=== PATIENT | male | born 1945 | race Caucasian/White ===

== ENCOUNTER 2024-12-17 16:20 | Emergency (ER) | payer MEDICARE, OTHER ==
[~2024-12-17] VITALS: Ht 185.4 cm; Wt 85.0 kg
[2024-12-17] MEDS: LIDOcaine 1% W/epiNEPHrine 1:100,000 20ml vial SQ ONE (18:01)
--- NOTE | 2024-12-17 19:02 | Physician Documentation ---
History of Present Illness ~ Chief Complaint: Laceration Stated Complaint: HEAD LAC Time Seen by MD: 16:42 Primary Medical Doctor: JACQUE JAMA Patient is seen today with complaints of laceration on his scalp in the temporal region slightly on the left side. Patient states he accidentally hit his head on an overhanging object. Patient denies any loss of consciousness or sig nificant headache or changes in vision or hearing and denies any chest pain or shortness of breath or abdominal pain or nausea, vomiting, diarrhea. He has no other concern or complaint at this time. Tetanus Within 5 Years: No Medication Reconciliation Allergies: Coded Allergies: Penicillins (Verified Allergy, Unknown, 12/17/24) Past Medical History Past Medical History: Hypertension, COPD Past Surgical History: no surgical history Drug Use: none Lives with: Spouse Lives In: Home Review of Systems Constitutional: Denies: chills, fever, weakness Eyes: Denies: pain, blurred vision ENT: Denies: ear pain, nose pain, throat pain, mouth pain Respiratory: Denies: cough, shortness of breath Cardiovascular: Denies: chest pain, palpitations Gastrointestinal: Denies: abdominal pain, nausea, vomiting Genitourinary: Denies: burning, dysuria Male Genitalia: Denies: penile discharge, testicular pain Neurological: Denies: headache, dizziness Musculoskeletal: Denies: pain, swelling Integumentary: Denies: rash, lesions Allergic/Immunologic: Denies: hives, itching Hematologic/Lymphatic: Denies: no symptoms reported Psychiatric: Denies: depression, anxiety Physical Exam Vital Signs: Temperature: 98.9, Source: Temporal, Heart Rate: 116, Respiratory Rate: 20, BP: 156/125, Pulse Oximetry: 97, Weight: 84.950 Oxygen Flow Rate: 0 Physical Exam General: Awake and Alert, no acute distress. HEENT: Conjunctiva pink, Sclera clear, Mucus Membranes moist. Neck: Supple without masses and tenderness. Resp: Unlabored. Lungs clear to auscultation bilaterally. Heart: Regular Rate and rhythm, normal S1 and S2 without murmur, rub or gallop. Abdomen: Soft and non tender no organomegaly Extremities: No cyanosis,clubbing or edema. Skin: Patient on exam does have a 4 cm laceration to his scalp on the temporal region on the left side. I do not appreciate any significant dirt in the wound and no purulent drainage and no induration or sign of infection. Procedures Laceration/Wound Repair Laceration : Procedure Note Procedure note: 5 cc of 1% lidocaine with epinephrine was used to achieve local anesthesia. The patient tolerated well. Wound was irrigated copiously and scrubbed clean using four four gauze. Four cyndy were used to achieve closure. Adhesive bandage Progress Results/Orders Results/Orders Completed Orders - BHAVESH WATSON PAC Lidocaine 1% W/Epi 1:100,000 (Xylocaine (12/17/24 17:15) Vital Signs 12/17/24 16:23 Temp 98.9 Pulse 116 Resp 20 B/P (MAP) 156/125 Pulse Ox 97 O2 Flow Rate 0 Medical Decision Making Findings Patient is seen today with complaints of laceration on his scalp in the temporal region slightly on the left side. Patient states he accidentally hit his head on an overhanging object. Patient denies any loss of consciousness or significant headache or changes in vision or hearing and denies any chest pain or shortness of breath or abdominal pain or nausea, vomiting, diarrhea. He has no other concern or complaint at this time. Patient did have laceration of scalp repaired today by myself using cyndy. Patient will return to ED or follow up with primary care in 7-10 days for staple removal. Patient will return to ED with any worsening, concerning or changing symptoms. Departure Disposition: 01 HOME / SELF CARE / HOMELESS Impression: Primary Impression: Laceration Condition: Improved Discharge Instructions: Laceration Care, Adult, [id number] Additional Instructions: Patient did have laceration of scalp repaired today by myself using cyndy. Patient will return to ED or follow up with primary care in 7-10 days for staple removal. Patient will return to ED with any worsening, concerning or changing symptoms. Referrals: NO PRIMARY CARE PROVIDER (PCP) Signature Scribe Signature: No scribe Attestation: No scribe BHAVESH WATSON Dec 17, 2024 19:02
[2024-12-17 19:13] VITALS: BP 128/84; PULSE 72; RESP 16; TEMP 98.6; O2SAT 98
== END 2024-12-17 19:15 | disposition home or self-care (01) ==
LOC: ER 16:21
DX: S01.01XA Laceration without foreign body of scalp, initial encounter (principal); I10 Essential (primary) hypertension; J44.9 Chronic obstructive pulmonary disease, unspecified; Z88.0 Allergy status to penicillin; W22.8XXA Striking against or struck by other objects, initial encounter; Y93.89 Activity, other specified; Y92.89 Other specified places as the place of occurrence of the external cause; Y99.8 Other external cause status
CPT/HCPCS: 12002; 99282; A6402; Z7610; A6449

== ENCOUNTER 2024-12-24 09:39 | Emergency (ER) | payer OTHER, MEDICARE ==
[~2024-12-24] VITALS: Ht 185.4 cm; Wt 83.9 kg
[2024-12-24 09:41] VITALS: BP 165/102; PULSE 82; RESP 16; TEMP 98; O2SAT 98
--- NOTE | 2024-12-24 09:57 | Physician Documentation ---
History of Present Illness ~ Chief Complaint: Staple Removal Stated Complaint: SUTURE REMOVAL Time Seen by MD: 09:49 Primary Medical Doctor: JACQUE JAMA [facility] 71-year-old gentleman that presents to the emergency department for removal of cyndy that were placed approximately 10 days ago. Patient reports no complications fevers or any concern for infection. Tetanus Within 5 Years: No Medication Reconciliation Allergies: Coded Allergies: Penicillins (Verified Allergy, Unknown, 12/17/24) Past Medical History Past Medical History: Hypertension, COPD Past Surgical History: no surgical history Drug Use: none Lives with: Spouse Lives In: Home Review of Systems ROS As stated above in the [facility], otherwise all systems are reviewed and negative. Physical Exam Vital Signs: Temperature: 98.0, Source: Temporal, Heart Rate: 82, Respiratory Rate: 16, BP: 165/102, Pulse Oximetry: 98, Weight: 83.900 Oxygen Flow Rate: 0 Physical Exam VITALS: Reviewed and as above. GENERAL: Alert, no apparent distress. SKIN: Warm and dry, no rash, cyndy to superior head. NEURO: Oriented x4, No motor or sensory deficit PSYCH: Normal mood and affect, no agitation Progress Results/Orders Results/Orders Vital Signs 12/24/24 09:41 Temp 98.0 Pulse 82 Resp 16 B/P (MAP) 165/102 Pulse Ox 98 O2 Flow Rate 0 Medical Decision Making Findings Patient presented for evaluation and removal of cyndy placed approximately 10 days ago. No complications no signs of infection. Digital exam or diagnostic necessary at this time. Patient will follow up with his primary care provider return to the ER if any additional concerns. Departure Disposition: 01 HOME / SELF CARE / HOMELESS Impression: Primary Impression: Visit for suture removal Condition: Stable Additional Instructions: Today you were seen in the emergency department for removal of cyndy placed approximately 10 days ago. Withdrawal line looks appropriate. Please keep wound covered for the next 5-7 days and apply sunscreen as needed when out in the sun. Follow up with the primary care provider. He is presenting to the emergency department for any additional concerning symptoms. Referrals: NO PRIMARY CARE PROVIDER (PCP) Education Educated: Patient Educated regarding: need for follow up Signature Scribe Signature: . Attestation: Scribed for Pearl Robertson by PITER Armstrong . 12/24/24 09:57 PEARL ROBERTSON 31, 2025 09:57
== END 2024-12-24 09:59 | disposition home or self-care (01) ==
LOC: ER 09:40
DX: S01.01XD Laceration without foreign body of scalp, subsequent encounter (principal); J44.9 Chronic obstructive pulmonary disease, unspecified; I10 Essential (primary) hypertension; Z88.0 Allergy status to penicillin; X58.XXXD Exposure to other specified factors, subsequent encounter
CPT/HCPCS: 99281